=== PATIENT | male | born 1940 | race Caucasian/White ===

== ENCOUNTER → 2019-01-09 | Outpatient (CLI) | payer MEDICARE, BC | END | disposition home or self-care (01) | LOC: CFH 07:33 | PROVIDERS: ATTEND Nurse Practitioner | DX: I35.2 Nonrheumatic aortic (valve) stenosis with insufficiency (principal); I10 Essential (primary) hypertension; E78.5 Hyperlipidemia, unspecified | CPT/HCPCS: 93306 ==

== ENCOUNTER → 2019-07-28 | Outpatient (CLI) | payer MEDICARE, BC | END | disposition home or self-care (01) | LOC: CFH 08:30 | PROVIDERS: ATTEND Internal Medicine Cardiovascular Disease | DX: I08.0 Rheumatic disorders of both mitral and aortic valves (principal) | CPT/HCPCS: 93306 ==

== ENCOUNTER → 2020-02-12 | Outpatient (CLI) | payer MEDICARE, BC | END | disposition home or self-care (01) | LOC: CVU 08:22 | PROVIDERS: ATTEND Internal Medicine Cardiovascular Disease | DX: I06.1 Rheumatic aortic insufficiency (principal); I11.9 Hypertensive heart disease without heart failure | CPT/HCPCS: 93306; 93356 ==

== ENCOUNTER 2020-03-31 09:34 | Observation (INO) | payer MEDICARE, BC ==
[~2020-03-31] VITALS: Ht 180.3 cm; Wt 79.0 kg
[2020-03-31 10:15] LABS: BASOPHILS # (AUTO) 0.02 x10^3/uL (0-0.1); BASOPHILS % (AUTO) 0 % (0-1); EOSINOPHILS # (AUTO) 0.06 x10^3/uL (0-0.4); EOSINOPHILS % (AUTO) 1 % (1-7); LYMPHOCYTES # (AUTO) 0.82 x10^3/uL (1-3.4); LYMPHOCYTES % (AUTO) 10 % (22-44); MD NO; MEAN CORPUSCULAR HEMOGLOBIN 31.6 pg (27.5-34.5); MEAN CORPUSCULAR HGB CONC 33.1 g/dL (33.2-36.2); MEAN CORPUSCULAR VOLUME 95.2 fL (81-97); MEAN PLATELET VOLUME 8.4 fL (7.4-10.4); MONOCYTES # (AUTO) 0.47 x10^3/uL (0.2-0.8); MONOCYTES % (AUTO) 6 % (2-9); NEUTROPHILS # (AUTO) 6.82 x10^3/uL (1.8-6.8); NEUTROPHILS % (AUTO) 83 % (42-75); PLATELET COUNT 182 x10^3/uL (130-400); RED BLOOD COUNT 5.45 x10^6/uL (4.38-5.82); RED CELL DISTRIBUTION WIDTH 13.9 % (9.4-14.8)
[2020-03-31] MEDS ORDERED: ASPIRIN 81 MG TABLET CHEW ONE (10:15)
[2020-03-31] MEDS ORDERED: NITROGLYCERIN OINT 2%, 1GM TP ONE ×2 (10:15→10:30)
--- NOTE | 2020-03-31 10:21 | NUR ---
PT STATES LT SIDED CP STARTING YESTERDAY, STATES STEADY PAIN CURRENTLY AT 4/10. PT MEDICATED PER ORDERS. PT ON MONITORS, VSS. PT'S AT BEDSIDE. AWAITING ALL RESULTS. CONT TO MONITOR.
[2020-03-31] MEDS ORDERED: ASPIRIN 81 MG TABLET CHEW PO ONE (10:30)
--- NOTE | 2020-03-31 10:53 | NUR ---
PT STATES DECREASED PAIN WITH NITRO PASTE. ER SIENA MADE AWARE.
[2020-03-31 11:09] LABS: ANION GAP 3 mmol/L (5-15); CALCIUM 9.2 mg/dL (8.5-10.1); CHLORIDE 104 mmol/L (98-107); CREATININE 0.89 mg/dL (0.7-1.3)
[2020-03-31 11:13] LABS: TROPONIN I < 0.015 ng/mL (0.000-0.045)
--- NOTE | 2020-03-31 11:45 | NUR ---
REPORT GIVEN TO ELIZABETH WEBB ON C TELE.
[2020-03-31] MEDS ORDERED: LISI40TA PO (11:59)
[2020-03-31] MEDS ORDERED: AMLO2.5T5 PO (12:00)
[2020-03-31] MEDS ORDERED: ZOLP-413 PO (12:00)
[2020-03-31] MEDS ORDERED: PRAV40TA2 PO (12:00)
[2020-03-31] MEDS ORDERED: GABA300C PO (12:01)
[2020-03-31] MEDS ORDERED: VIT1CAPS42 PO (12:02)
--- NOTE | 2020-03-31 12:27 | NUR ---
PT TRANSFERED TO FLOOR BY HAND LAMINATOR. PT AWARE OF POC. PT HAS ALL OWN BELONGINGS UPON TRANSFER.
[2020-03-31 12:32] VITALS: BP 136/72
[2020-03-31 13:05] VITALS: BP 136/72
[2020-03-31] MEDS ORDERED: NITROGLYCERIN 0.4 MG BOTTLE (25 TABS) SL PRN (14:30)
[2020-03-31] MEDS ORDERED: POLYETHYLENE GLYCOL 17 GM PACKET PO PRN (14:30)
[2020-03-31] MEDS ORDERED: ONDANSETRON 2MG/ML, 2ML IVPush PRN (14:30)
[2020-03-31] MEDS ORDERED: BISACODYL 10 MG SUPP PR PRN (14:30)
[2020-03-31] MEDS ORDERED: MELATONIN 5 MG TABLET PO PRN (14:30)
[2020-03-31] MEDS ORDERED: DOCUSATE 100 MG CAPSULE PO PRN (14:30)
[2020-03-31] MEDS ORDERED: hydrALAzine 20 MG/ML, 1ML IVPush PRN (14:30)
[2020-03-31] MEDS: HEPARIN 5,000 UNITS/ML, 1ML SQ SCH ×2 (14:42→22:54)
[2020-03-31 15:21] LABS: HCT (SEDRATE) 46.6 % (39.2-51.8)
[2020-03-31 15:37] LABS: FREE T4 (FREE THYROXINE) 1.17 ng/dL (0.76-1.46); TROPONIN I < 0.015 ng/mL (0.000-0.045)
[2020-03-31 20:00] VITALS: BP 133/85
[2020-03-31] MEDS: GABAPENTIN 300 MG CAPSULE PO SCH (20:51)
[2020-03-31] MEDS: PRAVASTATIN 40 MG TABLET PO SCH (20:51)
[2020-03-31] MEDS: FAMOTIDINE 20 MG TABLET PO SCH (20:56)
[2020-03-31 21:38] LABS: TROPONIN I < 0.015 ng/mL (0.000-0.045)
[2020-03-31] MEDS: ZOLPIDEM 5MG TABLET PO SCH (21:53)
[2020-04-01 02:06] VITALS: BP 116/63
[2020-04-01 06:05] LABS: BASOPHILS # (AUTO) 0.05 x10^3/uL (0-0.1); BASOPHILS % (AUTO) 1 % (0-1); EOSINOPHILS # (AUTO) 0.12 x10^3/uL (0-0.4); EOSINOPHILS % (AUTO) 2 % (1-7); LYMPHOCYTES # (AUTO) 0.95 x10^3/uL (1-3.4); LYMPHOCYTES % (AUTO) 17 % (22-44); MD NO; MEAN CORPUSCULAR HEMOGLOBIN 31.9 pg (27.5-34.5); MEAN CORPUSCULAR HGB CONC 33.1 g/dL (33.2-36.2); MEAN CORPUSCULAR VOLUME 96.1 fL (81-97); MEAN PLATELET VOLUME 8.4 fL (7.4-10.4); MONOCYTES # (AUTO) 0.64 x10^3/uL (0.2-0.8); MONOCYTES % (AUTO) 12 % (2-9); NEUTROPHILS # (AUTO) 3.84 x10^3/uL (1.8-6.8); NEUTROPHILS % (AUTO) 69 % (42-75); PLATELET COUNT 167 x10^3/uL (130-400); RED BLOOD COUNT 5.05 x10^6/uL (4.38-5.82); RED CELL DISTRIBUTION WIDTH 13.8 % (9.4-14.8)
[2020-04-01 06:09] LABS: ALANINE AMINOTRANSFERASE 31 U/L (12-78); ALBUMIN 3.7 g/dL (3.4-5.0); ANION GAP 5 mmol/L (5-15); CALCIUM 9.1 mg/dL (8.5-10.1); CHLORIDE 104 mmol/L (98-107); CHOLESTEROL, TOTAL 163 mg/dL (140-239); CREATININE 0.91 mg/dL (0.7-1.3)
[2020-04-01] MEDS: HEPARIN 5,000 UNITS/ML, 1ML SQ SCH ×3 (06:09→21:53)
[2020-04-01] MEDS: ASPIRIN 325 MG TABLET EC PO SCH (06:09)
[2020-04-01 06:11] LABS: ALKALINE PHOSPHATASE 75 U/L (45-117); CHOL/HDL RATIO 2.4; HDL CHOL % 42 % (26-37); HDL CHOLESTEROL (DIRECT) 68 mg/dL (40-60); LDL CHOLESTEROL,CALCULATED 77 mg/dL (54-169); LDL/HDL RATIO 1.1 (0.5-3.0); TOTAL PROTEIN 7.4 g/dL (6.4-8.2); TRIGLYCERIDES 92 mg/dL (50-200); VLDL CHOLESTEROL 18 mg/dL (0-25)
[2020-04-01 06:50] VITALS: BP 142/74
[2020-04-01] MEDS ORDERED: REGADENOSON 0.4 MG/5 ML SYRINGE ONE (09:21)
[2020-04-01] MEDS: FAMOTIDINE 20 MG TABLET PO SCH ×2 (11:59→21:00)
[2020-04-01] MEDS: GABAPENTIN 300 MG CAPSULE PO SCH ×2 (11:59→21:53)
[2020-04-01] MEDS: AMLODIPINE 2.5 MG TABLET PO SCH (11:59)
[2020-04-01] MEDS: LISINOPRIL 40 MG TABLET PO SCH (11:59)
[2020-04-01 12:42] VITALS: BP 148/75
[2020-04-01 15:22] LABS: TROPONIN I < 0.015 ng/mL (0.000-0.045)
[2020-04-01] MEDS: ACETAMINOPHEN 325 MG TABLET PO PRN (17:03)
[2020-04-01 18:54] VITALS: BP 117/67
[2020-04-01] MEDS: ZOLPIDEM 5MG TABLET PO SCH (21:54)
[2020-04-01] MEDS: PRAVASTATIN 40 MG TABLET PO SCH (21:54)
[2020-04-02 01:04] VITALS: BP 104/66
[2020-04-02 04:58] LABS: BASOPHILS # (AUTO) 0.02 x10^3/uL (0-0.1); BASOPHILS % (AUTO) 0 % (0-1); EOSINOPHILS # (AUTO) 0.16 x10^3/uL (0-0.4); EOSINOPHILS % (AUTO) 2 % (1-7); LYMPHOCYTES # (AUTO) 1.21 x10^3/uL (1-3.4); LYMPHOCYTES % (AUTO) 18 % (22-44); MD NO; MEAN CORPUSCULAR HEMOGLOBIN 31.6 pg (27.5-34.5); MEAN CORPUSCULAR HGB CONC 32.7 g/dL (33.2-36.2); MEAN CORPUSCULAR VOLUME 96.7 fL (81-97); MEAN PLATELET VOLUME 8.4 fL (7.4-10.4); MONOCYTES # (AUTO) 0.78 x10^3/uL (0.2-0.8); MONOCYTES % (AUTO) 12 % (2-9); NEUTROPHILS # (AUTO) 4.54 x10^3/uL (1.8-6.8); NEUTROPHILS % (AUTO) 68 % (42-75); PLATELET COUNT 174 x10^3/uL (130-400); RED BLOOD COUNT 4.96 x10^6/uL (4.38-5.82); RED CELL DISTRIBUTION WIDTH 14.1 % (9.4-14.8)
[2020-04-02 05:05] LABS: ANION GAP 5 mmol/L (5-15); CALCIUM 8.9 mg/dL (8.5-10.1); CHLORIDE 104 mmol/L (98-107); CREATININE 0.83 mg/dL (0.7-1.3)
[2020-04-02] MEDS: HEPARIN 5,000 UNITS/ML, 1ML SQ SCH ×2 (05:57→14:05)
[2020-04-02] MEDS: ASPIRIN 325 MG TABLET EC PO SCH (05:57)
[2020-04-02 06:36] VITALS: BP 119/72
[2020-04-02] MEDS: AMLODIPINE 2.5 MG TABLET PO SCH (09:16)
[2020-04-02] MEDS: FAMOTIDINE 20 MG TABLET PO SCH (09:16)
[2020-04-02] MEDS: GABAPENTIN 300 MG CAPSULE PO SCH (09:16)
[2020-04-02] MEDS: LISINOPRIL 40 MG TABLET PO SCH (09:16)
[2020-04-02 10:00] VITALS: BP 146/72
[2020-04-02] MEDS: ACETAMINOPHEN 325 MG TABLET PO PRN (10:06)
[2020-04-02 13:15] VITALS: BP 124/72
[2020-04-02] MEDS ORDERED: ASPI-650 PO (15:25)
== END 2020-04-02 16:30 | disposition home or self-care (01) ==
LOC: ED 10:19 → 5SO 11:14 → INTOOBSV 11:14 → DCLOUNGE 04-02 16:24
PROVIDERS: ADMIT Internal Medicine; ATTEND Hospitalist
DX: R07.89 Other chest pain (principal); I35.0 Nonrheumatic aortic (valve) stenosis; R07.2 Precordial pain; I10 Essential (primary) hypertension; E78.5 Hyperlipidemia, unspecified; G62.9 Polyneuropathy, unspecified; E78.00 Pure hypercholesterolemia, unspecified; Z72.89 Other problems related to lifestyle; Z79.899 Other long term (current) drug therapy
CPT/HCPCS: 36415; 71045; 78452; 80048; 80053; 80061; 82040; 83036; 83735; 84100; 84439; 84443; 84484; 85025; 85651; 93005; 93017; 93306; 93356; 96372; 99285; A9502; C9898; G0378; J1644; J2785

== ENCOUNTER → 2021-02-07 | Outpatient (CLI) | payer MEDICARE, BC ==
[~2021-02-07] MED LIST: AMLO2.5T5 PO; ASPI325T20 PO; GABA300C PO; LISI40TA9 PO; PRAV40TA2 PO; VIT1CAPS42 PO; ZOLP-413 PO
== END | disposition home or self-care (01) ==
LOC: CFH 13:17
PROVIDERS: ATTEND Internal Medicine Cardiovascular Disease
DX: I08.3 Combined rheumatic disorders of mitral, aortic and tricuspid valves (principal); I10 Essential (primary) hypertension; E78.5 Hyperlipidemia, unspecified
CPT/HCPCS: 93306